=== PATIENT | male | born 1990 | race African-American/Black ===

== ENCOUNTER 2022-09-30 19:02 | Emergency (ER) | payer MEDICAID ==
--- NOTE | 2022-09-30 23:15 | NUR ---
called for traage, no answer
--- NOTE | 2022-10-01 00:49 | NUR ---
called for traage, no answer
== END 2022-10-01 00:50 | disposition left against medical advice (07) ==
LOC: ER 19:05
DX: Z53.21 Procedure and treatment not carried out due to patient leaving prior to being seen by health care provider (principal)